=== PATIENT | female | born 1985 | race Hispanic/Latino ===

== ENCOUNTER 2018-11-03 00:10 | Emergency (ER) | payer BC, OTHER ==
[2018-11-03 00:33] LABS: APPEARANCE,URINE SL CLOUDY (CLEAR); BILIRUBIN,URINE NEGATIVE (NEGATIVE); COLOR,URINE YELLOW (YELLOW); GLUCOSE, URINE (UA) NEGATIVE (NEGATIVE); KETONES,URINE NEGATIVE (NEGATIVE); LEUKOCYTE ESTERASE ,URINE NEGATIVE (NEGATIVE); NITRATE,URINE NEGATIVE (NEGATIVE); OCCULT BLOOD,URINE SMALL (NEGATIVE); PROTEIN,URINE NEGATIVE (NEGATIVE); UROBILINOGEN,URINE 0.2 mg/dL (0.2-1.0)
[2018-11-03] MEDS ORDERED: TETANUS/DIPHTHERIA TOXOID [ADULT] 0.5 ML VIAL IM ONE (00:40)
[2018-11-03 00:42] LABS: BASOPHILS % (AUTO) 0.6 % (0.0-5.0); EOSINOPHILS % (AUTO) 0.6 % (0.0-8.0); HEMATOCRIT 38.5 % (36-48); LYMPHOCYTES % (AUTO) 29.8 % (21.0-51.0); MEAN CORPUSCULAR HEMOGLOBIN 27.4 pg (27.0-33.0); MONOCYTES % (AUTO) 9.2 % (3.0-13.0); NEUTROPHILS % (AUTO) 59.8 % (40.0-77.0); PLATELET COUNT (AUTO) 345 K/uL (130-400); RED BLOOD CELL COUNT(AUTO) 4.64 MIL/uL (4.00-5.50); RED CELL DISTRIBUTION WIDTH 13.6 % (11.0-15.5); WHITE BLOOD COUNT (AUTO) 6.4 K/uL (4.8-10.8)
[2018-11-03 00:50] LABS: BACTERIA,URINE Few /HPF (None Seen); SQUAMOUS EPITHELIAL CELL,UR 0-2 /HPF (0-2); WBC,URINE 0-1 /HPF (0-1)
[2018-11-03 00:51] LABS: CREATININE 0.8 mg/dL (0.5-1.5); POTASSIUM 3.1 mmol/L (3.5-5.1)
[2018-11-03 00:53] LABS: AMPHET/METH SCREEN,URINE NEGATIVE (NEGATIVE); BARBITURATE SCREEN, URINE NEGATIVE (NEGATIVE); BENZODIAZEPINES SCREEN,URINE NEGATIVE (NEGATIVE); CANNABINOID SCREEN,URINE NEGATIVE (NEGATIVE); COCAINE SCREEN,URINE NEGATIVE (NEGATIVE); OPIATE SCREEN,URINE NEGATIVE (NEGATIVE); PHENCYCLIDINE SCREEN,URINE NEGATIVE (NEGATIVE)
[2018-11-03 00:55] LABS: ALBUMIN 3.9 g/dL (3.5-5.0); BILIRUBIN,TOTAL 0.3 mg/dL (0.2-1.0)
[2018-11-03] MEDS ORDERED: THIAMINE HCL 100 MG/ML 2ML VIAL ONE (01:27)
== END 2018-11-03 04:15 | disposition home or self-care (01) ==
LOC: EDH 00:10
DX: S01.01XA Laceration without foreign body of scalp, initial encounter (principal); F10.129 Alcohol abuse with intoxication, unspecified; Z72.0 Tobacco use; V98.8XXA Other specified transport accidents, initial encounter; Y93.39 Activity, other involving climbing, rappelling and jumping off; Y92.488 Other paved roadways as the place of occurrence of the external cause; Y99.8 Other external cause status; Y90.9 Presence of alcohol in blood, level not specified
CPT/HCPCS: 12002; 36415; 70450; 72125; 80053; 80305; 81001; 81025; 85025; 90471; 90714; 96365; 96366; 99285; G0480; J3411